=== PATIENT | male | born 1990 | race Caucasian/White ===

== ENCOUNTER 2019-11-23 17:12 | Emergency (ER) | payer BC ==
[2019-11-23] MEDS ORDERED: Ondansetron ODT TAB* 4 MG PO ONE (17:44)
[2019-11-23 17:55] LABS: Influenza A Molecular Negative (Negative); Influenza B Molecular Negative (Negative)
[2019-11-23] MEDS ORDERED: Ondansetron INJ* 2 MG/ML VIAL IV ONE (17:57)
[2019-11-23] MEDS ORDERED: NS 0.9% 1000 ML** 1,000 ML IV ONE (17:57)
[2019-11-23] MEDS ORDERED: Ketorolac INJ* 30 MG/ML 1 ML VIAL IV ONE (17:57)
--- NOTE | 2019-11-23 17:58 | ED ---
Influenza-Like Illness - HPI Summary HPI Summary: Patient complains of nausea vomiting, throbbing headache, body aches, decreased by mouth intake 3 days. Patient tolerating fluids. Denies fever, cough, sore throat, CP, SOB, abdominal pain, change in urine, change in BM. Medical history is none. - History of Current Complaint Chief Complaint: EDFluSymptoms Time Seen by Provider: 11/23/19 17:42 Hx Obtained From: Patient Onset/Duration: Gradual Onset, Lasting Days Severity: Moderate Associated Signs & Symptoms: Myalgia, Headache, Vomiting - Allergy/Home Medications Allergies/Adverse Reactions: Allergies Allergy/AdvReac Type Severity Reaction Status Date / Time Sulfa (Sulfonamide Allergy GI Upset Verified 11/23/19 17:17 Antibiotics) PMH/Surg Hx/FS Hx/Imm Hx Endocrine/Hematology History: Denies: Hx Anticoagulant Therapy Cardiovascular History: Denies: Hx Pacemaker/ICD History: Denies: Hx Dialysis Sensory History: Denies: Hx Eye Prosthesis Opthamlomology History: Denies: Hx Legally Blind EENT History: Denies: Hx Deafness Neurological History: Denies: Hx Dementia Infectious Disease History: No Infectious Disease History: Denies: Traveled Outside the [place] in Last 30 Days - Family History Known Family History: Positive: Non-Contributory - Social History Alcohol Use: Occasionally Hx Substance Use: No Hx Tobacco Use: No Review of Systems Constitutional: Negative Eyes: Negative ENT: Negative Cardiovascular: Negative Respiratory: Negative Positive: Vomiting, Nausea Genitourinary: Negative Positive: Myalgia Skin: Negative Positive: Headache Psychological: Normal All Other Systems Reviewed And Are Negative: Yes Physical Exam Triage Information Reviewed: Yes Vital Signs On Initial Exam: Initial Vitals Temp Pulse Resp BP Pulse Ox 98.9 F 79 16 142/95 98 11/23/19 17:13 11/23/19 17:13 11/23/19 17:13 11/23/19 17:13 11/23/19 17:13 Vital Signs Reviewed: Yes Appearance: Positive: Well-Appearing Skin: Positive: Warm Head/Face: Positive: Normal Head/Face Inspection Eyes: Positive: Normal ENT: Positive: Normal ENT inspection Neck: Positive: Supple Respiratory/Lung Sounds: Positive: Clear to Auscultation Cardiovascular: Positive: Normal Abdomen Description: Positive: Nontender Musculoskeletal: Positive: Normal Neurological: Positive: Normal Psychiatric: Positive: Normal AVPU Assessment: Alert - [place] Coma Scale Best Eye Response: 4 - Spontaneous Best Motor Response: 6 - Obeys Commands Best Verbal Response: 5 - Oriented Coma Scale Total: 15 Procedures - Sedation Patient Received Moderate/Deep Sedation with Procedure: No Diagnostics - Vital Signs Vital Signs Temp Pulse Resp BP Pulse Ox 11/23/19 17:13 98.9 F 79 16 142/95 98 - Laboratory Lab Results: Lab Results 11/23/19 Range/Units 17:20 Influenza A (Rapid) Negative (Negative) Influenza B (Rapid) Negative (Negative) Lab Statement: Any lab studies that have been ordered have been reviewed, and results considered in the medical decision making process. Flu Symptom Course/Dx - Course Course Of Treatment: Patient complains of nausea vomiting, throbbing headache, body aches, decreased by mouth intake 3 days. Patient tolerating fluids. Denies fever, cough, sore throat, CP, SOB, abdominal pain, change in urine, change in BM. Medical history is none. Vital signs within normal limits. Flu negative. Patient's symptoms improved with Toradol, fluids and Zofran. - Diagnoses Provider Diagnoses: Headache, Viral syndrome Discharge ED - Sign-Out/Discharge Documenting (check all that apply): Patient Departure - Discharge Plan Condition: Stable Disposition: HOME Prescriptions: Ondansetron ODT TAB* [Zofran 4 MG Odt TAB*] 4 mg PO Q8H PRN 4 Days #14 tab.odt PRN Reason: Nausea Patient Education Materials: Acute Nausea and Vomiting (ED), Viral Syndrome (ED ) Referrals: No Primary Care Phys,NOPCP [Primary Care Provider] - Additional Instructions: Take Zofran as directed for nausea if needed. Drink plenty of fluids to maintain hydration. Alternate ibuprofen 600 mg with Tylenol 650 mg every 3 hours over the next 3 days for body aches and headache. Follow-up with primary care. Return to the ED for any new or worsening symptoms. - Billing Disposition and Condition Condition: STABLE Disposition: Home
[2019-11-23 20:03] VITALS: BP 133/79
== END 2019-11-23 19:26 | disposition home or self-care (01) ==
LOC: ED 17:12
DX: B34.9 Viral infection, unspecified (principal); R51 Headache; Z88.2 Allergy status to sulfonamides
CPT/HCPCS: 96361; 96374; 96375; 99282; A9270-GY; J1885; J2405